=== PATIENT | male | born 1935 | race Caucasian/White ===

== ENCOUNTER 2017-10-06 10:18 | Day surgery (SDC) | payer MEDICARE ==
[2017-10-06 10:58] LABS: ADD MAN DIFF? NO
[2017-10-06 11:03] LABS: BASOPHILS % 0.4 % (0.0-2.0); EOSINOPHILS # 0.2 10^3/ul (0.0-0.5); HEMATOCRIT 33.2 % (42.0-52.0); HEMOGLOBIN 10.8 g/dl (14.0-18.0); LYMPHOCYTES # 2.8 10^3/ul (0.8-2.9); LYMPHOCYTES % 35.2 % (15.0-51.0); MEAN CORPUSCULAR HEMOGLOBIN 31.8 pg (29.0-33.0); MEAN CORPUSCULAR HGB CONC 32.5 g/dl (32.0-37.0); MEAN CORPUSCULAR VOLUME 97.6 fl (82.0-101.0); MEAN PLATELET VOLUME 10.8 fl (7.4-10.4); MONOCYTE # 0.9 10^3/ul (0.3-0.9); MONOCYTES % 11.2 % (0.0-11.0); NEUTROPHILS % 49.8 % (39.0-77.0); PLATELET COUNT 104 10^3/UL (140-415); RED CELL DISTRIBUTION WIDTH 12.9 % (11.5-14.5)
[2017-10-06 11:23] LABS: INR 1.11; PROTIME 14.5 Sec (11.9-14.9); PT RATIO 1.1
[2017-10-06 11:24] LABS: PARTIAL THROMBOPLASTIN TIME 33.3 Sec (25.0-35.0)
[2017-10-06 11:32] LABS: CARBON DIOXIDE 26 mmol/L (21-31); CHLORIDE 101 mmol/L (97-110); GLUCOSE 111 mg/dl (70-220)
[2017-10-06 11:36] LABS: BLOOD UREA NITROGEN 65 mg/dl (7-20); CALCIUM 9.8 mg/dl (8.4-10.2); CREATININE 8.27 mg/dl (0.61-1.24); SODIUM 142 mmol/L (135-144)
[2017-10-06 11:37] LABS: ANION GAP 20 (8-16)
[2017-10-06] MEDS ORDERED: HEPARIN 1000 UNITS/NS (A-LINE) 1,000 ML (12:16)
[2017-10-06] MEDS ORDERED: IODIXANOL LOCM 50 ML BTL ×2 (12:16→12:59)
[2017-10-06] MEDS ORDERED: LIDOCAINE 1% (MDV) 20 ML INJ ×2 (12:16→12:45)
[2017-10-06] MEDS ORDERED: MIDAZOLAM 1 MG/ML 2 ML INJ (12:16)
[2017-10-06] MEDS ORDERED: FENTAnyl 50 MCG/ML VIAL (12:16)
[2017-10-06] MEDS ORDERED: HEPARIN 1000 UNITS/ML 10 ML INJ (12:16)
== END 2017-10-06 14:26 | disposition home or self-care (01) ==
LOC: SDS 10:18
DX: T82.898A Other specified complication of vascular prosthetic devices, implants and grafts, initial encounter (principal); Y84.1 Kidney dialysis as the cause of abnormal reaction of the patient, or of later complication, without mention of misadventure at the time of the procedure; I12.0 Hypertensive chronic kidney disease with stage 5 chronic kidney disease or end stage renal disease; N18.6 End stage renal disease; E11.9 Type 2 diabetes mellitus without complications
CPT/HCPCS: 36901; 36907; 80048; 82962; 85025; 85610; 85730